=== PATIENT | female | born 1960 | race Caucasian/White ===

== ENCOUNTER 2018-10-09 19:46 | Emergency (ER) | payer SELFPAY ==
[~2018-10-09] VITALS: Ht 167.6 cm; Wt 56.9 kg
[~2018-10-09 19:46] MED LIST: ACET-787 PO; ALPR2TAB1 PO; CARI250T PO
[2018-10-09 19:50] VITALS: BP 180/113
--- NOTE | 2018-10-09 19:55 | NUR ---
TO ED 05 WITH STEADY GAIT. URINE CUP PROVIDED
--- NOTE | 2018-10-09 20:05 | NUR ---
57/F PRESENTS TO ED WITH FAMILY/FRIEND, C/O 05/15 EPIGASTRIC "UCLER" PAIN, LOWER BACK "SCIATICA" PAIN, AND JOINT PAIN FROM ARTHRITIS, X2 DAYS. PT REPORTS NAUSEA, DENIES VOMITING, DIARRHEA, CONSTIPATION, FEVER, OR DYSURIA. AOX4, GCS 15, RR EVEN AND UNLABORED. LUNG SOUNDS CLEAR BL. BS ACTIVE X4, ABD SOFT ROUND TENDER TO EPIGASTRIC, DENIES LOWER QUADRANT TENDERNESS. HX GASTRIC ULCER, SCIATICA, ARTHRITIS
[2018-10-09] MEDS ORDERED: NACL 0.9% 1,000 ML IV ONE (20:30)
[2018-10-09] MEDS ORDERED: PANTOPRAZOLE 40 MG INJ VIAL IVP ONE (20:50)
[2018-10-09] MEDS ORDERED: ONDANSETRON 4 MG/2 ML VIAL IVP ONE (20:50)
[2018-10-09 21:01] LABS: BASOPHILS # (AUTO) 0.1 K/uL (0.00-0.22); BASOPHILS % (AUTO) 0.9 % (0.0-2.0); EOSINOPHILS # (AUTO) 0.1 K/uL (0-0.4); HEMATOCRIT 40.8 % (36-48); HEMOGLOBIN 13.6 g/dL (12.0-16.0); LYMPHOCYTES # (AUTO) 1.9 K/uL (2.5-16.5); LYMPHOCYTES % (AUTO) 25.5 % (20.5-51.1); MEAN CORPUSCULAR HEMOGLOBIN 31 pg (27-31); MEAN CORPUSCULAR HGB CONC 33 g/dL (33-37); MEAN CORPUSCULAR VOLUME 92.3 fL (80-94); MONOCYTES # (AUTO) 0.5 K/uL (0.8-1.0); MONOCYTES % (AUTO) 6.3 % (1.7-9.3); NEUTROPHILS # (AUTO) 4.9 K/uL (1.8-7.7); NEUTROPHILS % (AUTO) 66.3 % (42.2-75.2); PLATELET COUNT (AUTO) 335 K/uL (140-450); RED BLOOD CELL COUNT(AUTO) 4.42 MIL/uL (4.20-5.40); RED CELL DISTRIBUTION WIDTH 14.9 % (11.6-13.7); WHITE BLOOD COUNT (AUTO) 7.4 K/uL (4.8-10.8)
[2018-10-09 21:12] LABS: ANION GAP 11.1 (8-16); CARBON DIOXIDE 28.4 mmol/L (21-32); POTASSIUM 3.5 mmol/L (3.5-5.1)
[2018-10-09 21:19] LABS: ALBUMIN 3.8 g/dL (3.4-5.0); TOTAL BILIRUBIN 0.3 mg/dL (0.0-1.0)
[2018-10-09 21:50] LABS: APPEARANCE,URINE CLEAR (CLEAR); BILIRUBIN,URINE NEGATIVE (NEGATIVE); BLOOD, URINE NEGATIVE (NEGATIVE); COLOR,URINE YELLOW (YELLOW); LEUKOCYTE ESTERASE ,URINE NEGATIVE (NEGATIVE); NITRITE, URINE NEGATIVE (NEGATIVE); UGLUCOSE NEGATIVE (NEGATIVE)
--- NOTE | 2018-10-09 22:37 | NUR ---
Patient discharged with v/s stable. Written and verbal after care instructions given and explained. Patient alert, oriented and verbalized understanding of instructions. Ambulatory with steady gait. All questions addressed prior to discharge. ID band removed. Patient advised to follow up with PMD. Rx of Protonix, Maalox, Zofran, and Carafate given. Patient educated on indication of medication including possible reaction and side effects. Opportunity to ask questions provided and answered.
[2018-10-09 22:41] VITALS: BP 146/73
== END 2018-10-09 22:37 | disposition home or self-care (01) ==
LOC: MED 19:46
DX: K27.9 Peptic ulcer, site unspecified, unspecified as acute or chronic, without hemorrhage or perforation (principal); M19.90 Unspecified osteoarthritis, unspecified site; F17.210 Nicotine dependence, cigarettes, uncomplicated; Z79.891 Long term (current) use of opiate analgesic
CPT/HCPCS: 36415; 80053; 81003; 81025; 83690; 85025; 96374; 96375; 99283; C9113; J2405; J7030

== ENCOUNTER 2018-10-24 12:03 | Emergency (ER) | payer SELFPAY ==
[~2018-10-24] VITALS: Ht 167.6 cm; Wt 58.1 kg
[2018-10-24 12:27] VITALS: BP 128/90
--- NOTE | 2018-10-24 13:00 | NUR ---
C/O SHARP UPPER ABD PAIN X 1 DAY 05/15, 1 EPISODE OF VOMITING TODAY. DENIES FEVER/COUGH/DIARRHEA. PER PT SHE "HAS A HISTORY OF STOMACH ULCERS" VSS; PATIENT POSITIONED FOR COMFORT; HOB ELEVATED; BEDRAILS UP X1; BED DOWN. ER MD MADE AWARE OF PT STATUS.
[2018-10-24 13:10] LABS: BASOPHILS # (AUTO) 0.1 K/uL (0.00-0.22); BASOPHILS % (AUTO) 1.2 % (0.0-2.0); EOSINOPHILS # (AUTO) 0.1 K/uL (0-0.4); EOSINOPHILS % (AUTO) 1.2 % (0.0-4.0); HEMATOCRIT 44.5 % (36-48); HEMOGLOBIN 15.1 g/dL (12.0-16.0); LYMPHOCYTES # (AUTO) 1.6 K/uL (2.5-16.5); LYMPHOCYTES % (AUTO) 17.6 % (20.5-51.1); MEAN CORPUSCULAR HEMOGLOBIN 31 pg (27-31); MEAN CORPUSCULAR HGB CONC 34 g/dL (33-37); MEAN CORPUSCULAR VOLUME 92.3 fL (80-94); MONOCYTES # (AUTO) 0.4 K/uL (0.8-1.0); MONOCYTES % (AUTO) 4.8 % (1.7-9.3); NEUTROPHILS # (AUTO) 6.7 K/uL (1.8-7.7); NEUTROPHILS % (AUTO) 75.2 % (42.2-75.2); PLATELET COUNT (AUTO) 393 K/uL (140-450); RED BLOOD CELL COUNT(AUTO) 4.82 MIL/uL (4.20-5.40); RED CELL DISTRIBUTION WIDTH 14.9 % (11.6-13.7)
--- NOTE | 2018-10-24 13:24 | NUR ---
DR TORRES AT BEDSIDE.
[2018-10-24 13:30] LABS: CARBON DIOXIDE 27.1 mmol/L (21-32); CREATININE 0.9 mg/dL (0.6-1.3); POTASSIUM 4.1 mmol/L (3.5-5.1)
[2018-10-24 13:32] LABS: ALBUMIN 4.3 g/dL (3.4-5.0); TOTAL BILIRUBIN 0.6 mg/dL (0.0-1.0)
[2018-10-24] MEDS ORDERED: ONDANSETRON 4 MG/2 ML VIAL IVP ONE (13:40)
[2018-10-24] MEDS ORDERED: PANTOPRAZOLE 40 MG INJ VIAL IVP ONE (13:40)
[2018-10-24] MEDS ORDERED: KETOROLAC 30 MG/ML VIAL IVP ONE (13:40)
[2018-10-24] MEDS ORDERED: NACL 0.9% 1,000 ML IV ONE (13:40)
--- NOTE | 2018-10-24 14:27 | NUR ---
PATIENT TAKEN IN [facility] TO CT
[2018-10-24] MEDS ORDERED: MORPHINE SULFATE 4 MG/ML SYR IVP ONE (15:50)
[2018-10-24 16:24] VITALS: BP 143/92
--- NOTE | 2018-10-24 16:25 | NUR ---
Patient discharged with v/s stable. Written and verbal after care instructions given and explained. Patient alert, oriented and verbalized understanding of instructions. Ambulatory with steady gait. All questions addressed prior to discharge. ID band removed. Patient advised to follow up with PMD. Rx of PROTONIX, CARAFATE, TRAMADOL, BENTYL given. Patient educated on indication of medication including possible reaction and side effects. Opportunity to ask questions provided and answered.
== END 2018-10-24 16:25 | disposition home or self-care (01) ==
LOC: MED 12:03
DX: K27.9 Peptic ulcer, site unspecified, unspecified as acute or chronic, without hemorrhage or perforation (principal); Z79.891 Long term (current) use of opiate analgesic; Z79.899 Other long term (current) drug therapy; Z87.19 Personal history of other diseases of the digestive system
CPT/HCPCS: 36415; 74176; 80053; 83690; 85025; 96361; 96374; 96375; 99284; C9113; J1885; J2270; J2405; J7030

== ENCOUNTER 2018-11-30 08:42 | Emergency (ER) | payer SELFPAY ==
[~2018-11-30] VITALS: Ht 165.1 cm; Wt 58.1 kg
[2018-11-30 08:46] VITALS: BP 139/88
--- NOTE | 2018-11-30 08:51 | NUR ---
Patient ambulated to bed 8 with family. RN evaluating patient at bedside.
--- NOTE | 2018-11-30 08:54 | NUR ---
C/O N/V & LUQ ABDOMINAL PAIN X TODAY. HX: GASTRITIS MED: NONE . DENIES N/V/D; SKIN IS PINK/WARM/DRY; AAOX4 , LUNGS CLEAR BL; HR EVEN AND REGULAR; PT DENIES ANY FEVER, CP, SOB, OR COUGH AT THIS TIME; PATIENT STATES PAIN OF 10/10 AT THIS TIME; VSS; PATIENT POSITIONED FOR COMFORT; HOB ELEVATED; BEDRAILS UP X2; BED DOWN. ER MD MADE AWARE OF PT STATUS. HAD BM YETERDAY NORMAL. NO TRAUMA OR ACCIDENT.
[2018-11-30] MEDS ORDERED: ALUMINUM HYD/MAG/SIMETHICONE 30 ML UDC PO ONE (09:10)
[2018-11-30] MEDS ORDERED: NACL 0.9% 1,000 ML IV ONE (09:10)
[2018-11-30] MEDS ORDERED: ONDANSETRON 4 MG/2 ML VIAL IVP ONE (09:10)
[2018-11-30] MEDS ORDERED: PANTOPRAZOLE 40 MG INJ VIAL IVP ONE (09:10)
--- NOTE | 2018-11-30 09:47 | NUR ---
PT BACK TO ROOM AFTER X-RAY PER TECH VIA WHEELCHAIR
[2018-11-30 09:49] LABS: BASOPHILS # (AUTO) 0.1 K/uL (0.00-0.22); BASOPHILS % (AUTO) 0.7 % (0.0-2.0); EOSINOPHILS # (AUTO) 0.1 K/uL (0-0.4); HEMOGLOBIN 15.6 g/dL (12.0-16.0); LYMPHOCYTES # (AUTO) 1.6 K/uL (2.5-16.5); LYMPHOCYTES % (AUTO) 18.8 % (20.5-51.1); MEAN CORPUSCULAR HEMOGLOBIN 32 pg (27-31); MEAN CORPUSCULAR HGB CONC 34 g/dL (33-37); MONOCYTES # (AUTO) 0.4 K/uL (0.8-1.0); MONOCYTES % (AUTO) 4.3 % (1.7-9.3); NEUTROPHILS # (AUTO) 6.5 K/uL (1.8-7.7); NEUTROPHILS % (AUTO) 75.2 % (42.2-75.2); PLATELET COUNT (AUTO) 393 K/uL (140-450); RED BLOOD CELL COUNT(AUTO) 4.95 MIL/uL (4.20-5.40); RED CELL DISTRIBUTION WIDTH 14.8 % (11.6-13.7); WHITE BLOOD COUNT (AUTO) 8.6 K/uL (4.8-10.8)
[2018-11-30 09:54] LABS: ANION GAP 17.4 (8-16); CARBON DIOXIDE 25.3 mmol/L (21-32); CREATININE 0.9 mg/dL (0.6-1.3); POTASSIUM 3.7 mmol/L (3.5-5.1)
[2018-11-30 09:59] LABS: ALBUMIN 4.8 g/dL (3.4-5.0); TOTAL BILIRUBIN 0.7 mg/dL (0.0-1.0)
[2018-11-30] MEDS ORDERED: LORazepam 2 MG/ML VIAL IVP ONE (10:25)
--- NOTE | 2018-11-30 10:45 | NUR ---
notified dr. Ortiz pt does not have urine sample yet. said that's fine.
--- NOTE | 2018-11-30 11:15 | NUR ---
pt sleeping in bed, no s/s of respiratory distress noted.
--- NOTE | 2018-11-30 13:30 | NUR ---
PT AMBULATED TO BATHROOM, URINE CUP GIVEN TO PT BUT PT FORGOT TO GET URINE SAMPLE. AT BEDSIDE.
[2018-11-30 13:43] VITALS: BP 132/78
--- NOTE | 2018-11-30 13:43 | NUR ---
Patient discharged with v/s stable. Written and verbal after care instructions given and explained. Patient alert, oriented and verbalized understanding of instructions. Ambulatory with steady gait. All questions addressed prior to discharge. ID band removed. Patient advised to follow up with PMD. Rx of MIRALAX,PEPCID,ZOFRAN given. Patient educated on indication of medication including possible reaction and side effects. Opportunity to ask questions provided and answered.
--- NOTE | 2018-12-02 13:41 | NUR ---
Late entry. Confirmed with RN that 1000 ml IV bolus 0.9 NS completed at 1020.
== END 2018-11-30 13:43 | disposition home or self-care (01) ==
LOC: MED 08:42
DX: R10.13 Epigastric pain (principal); R11.0 Nausea; K21.9 Gastro-esophageal reflux disease without esophagitis; F17.200 Nicotine dependence, unspecified, uncomplicated; Z79.899 Other long term (current) drug therapy
CPT/HCPCS: 36415; 71045; 74021; 80053; 83690; 85025; 93005; 96374; 96375; 99284; C9113; J2060; J2405; J7030